=== PATIENT | female | born 1990 | race Caucasian/White ===

== ENCOUNTER 2017-06-20 18:31 | Emergency (ER) | payer MEDICAID ==
[2017-06-20 19:03] LABS: BASOPHILS 0.2 % (0-2); EOSINOPHILS 1.1 % (0-7); HEMATOCRIT 41.3 % (36.0-48.0); HEMOGLOBIN 14.1 g/dL (12-16); IMMATURE GRANULOCYTES 0.1 % (0-5); LYMPHOCYTES 25.5 % (15-50); MCHC 34.1 g/dL (31.0-37.0); MCV 82.1 fL (80.0-100.0); MEAN PLATELET VOLUME 10.9 fL (7.4-10.4); MONOCYTES 6.6 % (2-11); NEUTROPHILS 66.5 % (40-80); PLATELET COUNT 305 10x3/uL (130-400); RBC 5.03 10x6/uL (4.00-5.40); RDW 13.4 % (11.5-14.5); WBC 9.9 10x3/uL (4.8-10.8)
[2017-06-20 19:05] LABS: APPEARANCE SLT CLOUDY (CLEAR); BILIRUBIN NEGATIVE (NEGATIVE); COLOR YELLOW (YELLOW); GLUCOSE NEGATIVE (NEGATIVE); KETONE NEGATIVE (NEGATIVE); NITRITE NEGATIVE (NEGATIVE); PROTEIN NEGATIVE (NEGATIVE); UROBILINOGEN NORMAL (NORMAL)
[2017-06-20 19:16] LABS: ALBUMIN 3.7 g/dL (3.4-5.0); ALKALINE PHOSPHATASE 73 U/L (46-116); ALT (SGPT) 27 U/L (10-68); BILIRUBIN - TOTAL 0.79 mg/dL (0.2-1.3); CALC OSMOLALITY 275 mosm/kg (275-300); CALCIUM 9.6 mg/dL (8.5-10.1); CARBON DIOXIDE 26.9 mmol/L (21.0-32.0); CHLORIDE - SERUM 104 mmol/L (98-107); CREATININE - SERUM 0.7 mg/dL (0.6-1.3); GLUCOSE 83 mg/dL (74-106); POTASSIUM - SERUM 3.5 mmol/L (3.5-5.1); PROTEIN - SERUM 7.8 g/dL (6.4-8.2); SODIUM 139 mmol/L (136-145); UREA NITROGEN 10 mg/dL (7-18); eGFR NON AFRICAN AMERICAN > 90 mL/min (90-120)
[2017-06-20 19:21] LABS: HCG SERUM NEGATIVE (NEGATIVE)
== END 2017-06-20 21:52 | disposition home or self-care (01) ==
LOC: D.ER 18:31
PROVIDERS: Emergency Medicine
DX: K59.00 Constipation, unspecified (principal); R10.9 Unspecified abdominal pain; F17.200 Nicotine dependence, unspecified, uncomplicated; I10 Essential (primary) hypertension

== ENCOUNTER 2017-08-17 23:06 | Emergency (ER) | payer MEDICAID ==
[~2017-08-17] VITALS: Ht 149.9 cm; Wt 90.0 kg
[2017-08-17 23:16] VITALS: Ht 149.9 cm; Wt 90.0 kg
[2017-08-18 01:29] VITALS: BP 140/86
== END 2017-08-18 01:31 | disposition left against medical advice (07) ==
LOC: D.ER 23:06
DX: F41.9 Anxiety disorder, unspecified (principal)

== ENCOUNTER 2017-11-28 19:14 | Emergency (ER) | payer MEDICAID ==
[~2017-11-28] VITALS: Ht 149.9 cm; Wt 86.4 kg
[2017-11-28 19:19] VITALS: Ht 149.9 cm; Wt 86.4 kg
[2017-11-28 19:42] LABS: BASOPHILS 0.2 % (0-2); EOSINOPHILS 1.4 % (0-7); HEMATOCRIT 37.8 % (36.0-48.0); HEMOGLOBIN 12.6 g/dL (12-16); IMMATURE GRANULOCYTES 0.1 % (0-5); LYMPHOCYTES 22.6 % (15-50); MCH 27.7 pg (26.0-34.0); MCHC 33.3 g/dL (31.0-37.0); MCV 83.1 fL (80.0-100.0); MEAN PLATELET VOLUME 10.6 fL (7.4-10.4); MONOCYTES 8.3 % (2-11); NEUTROPHILS 67.4 % (40-80); PLATELET COUNT 275 10x3/uL (130-400); RBC 4.55 10x6/uL (4.00-5.40); RDW 13.1 % (11.5-14.5); WBC 8.4 10x3/uL (4.8-10.8)
[2017-11-28 19:47] LABS: APTT 26.2 SECONDS (22.8-39.4); PROTIME 12.8 SECONDS (11.6-15.0)
[2017-11-28 19:57] LABS: ALBUMIN 3.4 g/dL (3.4-5.0); ALKALINE PHOSPHATASE 72 U/L (46-116); ALT (SGPT) 26 U/L (10-68); BILIRUBIN - TOTAL 0.39 mg/dL (0.2-1.3); CALC OSMOLALITY 276 mosm/kg (275-300); CALCIUM 8.7 mg/dL (8.5-10.1); CHLORIDE - SERUM 105 mmol/L (98-107); CREATININE - SERUM 0.7 mg/dL (0.6-1.3); GLUCOSE 102 mg/dL (74-106); POTASSIUM - SERUM 3.8 mmol/L (3.5-5.1); PROTEIN - SERUM 7.2 g/dL (6.4-8.2); SODIUM 140 mmol/L (136-145); UREA NITROGEN 7 mg/dL (7-18); eGFR NON AFRICAN AMERICAN > 90 mL/min (90-120)
[2017-11-28 20:07] LABS: CKMB 0.1 U/L (0.0-3.6); CREATINE KINASE 43 UL (21-215); MAGNESIUM - SERUM 2.1 mg/dL (1.8-2.4)
[2017-11-28 20:15] LABS: TROPONIN-I < 0.017 ng/mL (0.000-0.060)
[2017-11-28 22:35] VITALS: BP 115/84
== END 2017-11-28 22:37 | disposition home or self-care (01) ==
LOC: D.ER 19:14
PROVIDERS: Family Medicine
DX: R07.89 Other chest pain (principal); F41.9 Anxiety disorder, unspecified; G40.909 Epilepsy, unspecified, not intractable, without status epilepticus; I10 Essential (primary) hypertension; K21.9 Gastro-esophageal reflux disease without esophagitis; F17.200 Nicotine dependence, unspecified, uncomplicated

== ENCOUNTER 2018-03-19 12:35 | Emergency (ER) | payer MEDICAID ==
[~2018-03-19] VITALS: Ht 149.9 cm; Wt 94.5 kg
[2018-03-19 12:50] VITALS: BP 129/82; Ht 149.9 cm; Wt 94.5 kg
== END 2018-03-19 14:54 | disposition left against medical advice (07) ==
LOC: D.ER 12:35
DX: R51 Headache (principal)

== ENCOUNTER 2018-10-21 21:55 | Emergency (ER) | payer MEDICAID ==
[~2018-10-21] VITALS: Ht 149.9 cm; Wt 85.9 kg
[2018-10-21 22:04] VITALS: Ht 149.9 cm; Wt 85.9 kg
[2018-10-21 22:42] LABS: BASOPHILS 0.2 % (0-2); EOSINOPHILS 0.7 % (0-7); HEMATOCRIT 37.6 % (36.0-48.0); HEMOGLOBIN 13.1 g/dL (12-16); IMMATURE GRANULOCYTES 0.1 % (0-5); LYMPHOCYTES 18.4 % (15-50); MCH 27.8 pg (26.0-34.0); MCHC 34.8 g/dL (31.0-37.0); MCV 79.8 fL (80.0-100.0); MEAN PLATELET VOLUME 11.1 fL (7.4-10.4); MONOCYTES 9.9 % (2-11); NEUTROPHILS 70.7 % (40-80); PLATELET COUNT 230 10x3/uL (130-400); RBC 4.71 10x6/uL (4.00-5.40); RDW 14.5 % (11.5-14.5); WBC 8.2 10x3/uL (4.8-10.8)
[2018-10-21 22:43] LABS: APPEARANCE CLOUDY (CLEAR); BILIRUBIN NEGATIVE (NEGATIVE); COLOR YELLOW (YELLOW); GLUCOSE NEGATIVE (NEGATIVE); KETONE LARGE mg/dL (NEGATIVE); NITRITE NEGATIVE (NEGATIVE); PROTEIN NEGATIVE (NEGATIVE); SPECIFIC GRAVITY 1.025 (1.005-1.020); UROBILINOGEN NORMAL (NORMAL)
[2018-10-21 22:51] LABS: HCG SERUM NEGATIVE (NEGATIVE)
[2018-10-21 22:56] LABS: ALBUMIN 3.5 g/dL (3.4-5.0); ALKALINE PHOSPHATASE 71 U/L (46-116); ALT (SGPT) 21 U/L (10-68); BILIRUBIN - TOTAL 0.96 mg/dL (0.2-1.3); CALC OSMOLALITY 275 mosm/kg (275-300); CALCIUM 8.7 mg/dL (8.5-10.1); CARBON DIOXIDE 26.3 mmol/L (21.0-32.0); CHLORIDE - SERUM 106 mmol/L (98-107); CREATININE - SERUM 0.7 mg/dL (0.6-1.3); GLUCOSE 81 mg/dL (74-106); POTASSIUM - SERUM 3.5 mmol/L (3.5-5.1); SODIUM 140 mmol/L (136-145); UREA NITROGEN 8 mg/dL (7-18); eGFR NON AFRICAN AMERICAN > 90 mL/min (90-120)
[2018-10-22] MEDS ORDERED: PHENERGAN25 M1 PO (01:39)
[2018-10-22 02:23] VITALS: BP 118/62
== END 2018-10-22 02:23 | disposition home or self-care (01) ==
LOC: D.ER 21:55
PROVIDERS: Family Medicine
DX: R10.9 Unspecified abdominal pain (principal); R11.2 Nausea with vomiting, unspecified

== ENCOUNTER 2019-05-28 01:29 | Emergency (ER) | payer MEDICAID ==
[~2019-05-28] VITALS: Ht 149.9 cm; Wt 62.3 kg
[~2019-05-28 01:29] MED LIST: PHENERGAN25 M1 PO
[2019-05-28 01:37] VITALS: Ht 149.9 cm; Wt 62.3 kg
[2019-05-28 01:58] LABS: BASOPHILS 0.3 % (0-2); EOSINOPHILS 0.6 % (0-7); HEMATOCRIT 39.7 % (36.0-48.0); HEMOGLOBIN 12.8 g/dL (12-16); IMMATURE GRANULOCYTES 0.1 % (0-5); LYMPHOCYTES 23.8 % (15-50); MCH 27.7 pg (26.0-34.0); MCHC 32.2 g/dL (31.0-37.0); MCV 85.9 fL (80.0-100.0); MEAN PLATELET VOLUME 10.7 fL (7.4-10.4); MONOCYTES 8.7 % (2-11); NEUTROPHILS 66.5 % (40-80); PLATELET COUNT 237 10x3/uL (130-400); RBC 4.62 10x6/uL (4.00-5.40); RDW 13.4 % (11.5-14.5); WBC 7.1 10x3/uL (4.8-10.8)
[2019-05-28 02:11] LABS: CALC OSMOLALITY 280 mosm/kg (275-300); CALCIUM 8.8 mg/dL (8.5-10.1); CARBON DIOXIDE 26.1 mmol/L (21.0-32.0); CHLORIDE - SERUM 105 mmol/L (98-107); CREATININE - SERUM 0.5 mg/dL (0.6-1.3); GLUCOSE 89 mg/dL (74-106); POTASSIUM - SERUM 3.6 mmol/L (3.5-5.1); SODIUM 142 mmol/L (136-145); UREA NITROGEN 10 mg/dL (7-18); eGFR NON AFRICAN AMERICAN > 90 mL/min (90-120)
[2019-05-28 02:19] LABS: ALBUMIN 3.4 g/dL (3.4-5.0); ALKALINE PHOSPHATASE 65 U/L (30-120); ALT (SGPT) 30 U/L (10-68); AMYLASE - SERUM 27 U/L (25-115); BILIRUBIN - TOTAL 0.84 mg/dL (0.2-1.3); LIPASE 99 U/L (73-393); PROTEIN - SERUM 6.5 g/dL (6.4-8.2); TROPONIN-I < 0.017 ng/mL (0.000-0.060)
[2019-05-28 03:10] LABS: HCG URINE NEGATIVE (NEGATIVE)
[2019-05-28 03:17] LABS: BILIRUBIN NEGATIVE (NEGATIVE); GLUCOSE NEGATIVE (NEGATIVE); KETONE MODERATE mg/dL (NEGATIVE); NITRITE NEGATIVE (NEGATIVE); UROBILINOGEN NORMAL (NORMAL)
[2019-05-28 03:18] LABS: BACTERIA MODERATE /hpf (NEGATIVE); EPITHELIAL CELLS 0-5 /hpf (0-5); RED CELLS - URINE NONE SEEN /hpf (0-5); WHITE CELLS - URINE 0-5 /hpf (NEGATIVE)
[2019-05-28] MEDS ORDERED: ZOFRAN ODT4 MG/UDTAB PO (04:28)
[2019-05-28] MEDS ORDERED: TORADOL10 MG PO (04:28)
[2019-05-28 04:40] VITALS: BP 121/74
[2019-06-01 16:08] LABS: AEROBE ID Preliminary report (())
== END 2019-05-28 04:40 | disposition home or self-care (01) ==
LOC: D.ER 01:29
PROVIDERS: Family Medicine
DX: A08.4 Viral intestinal infection, unspecified (principal)